=== PATIENT | female | born 1955 | race Caucasian/White ===

== ENCOUNTER 2017-01-17 09:19 | Emergency (ER) | payer OTHER ==
[~2017-01-17] VITALS: Ht 157.5 cm; Wt 76.0 kg
[~2017-01-17 09:19] MED LIST: CALC500T21 PO; IRON27TA PO; SYNT137T PO; TAB-TAB PO; VITA250T5 PO
[2017-01-17 09:29] VITALS: BP 124/86; PULSE 74; RESP 16; TEMP 98.6; O2SAT 98
[2017-01-17] MEDS ORDERED: IRON18TA2 PO (09:41)
[2017-01-17] MEDS ORDERED: MULTCAP13 PO (09:41)
[2017-01-17] MEDS ORDERED: LEVO.2 PO (09:41)
[2017-01-17] MEDS ORDERED: SODIUM CHLOR 0.9% 1000 ML INJ 1,000 ML IV SCH (09:47)
--- NOTE | 2017-01-17 09:53 | PD ---
HPI Chief Complaint: Abdominal Pain Time Seen by Provider: 09:41 Travel History International Travel<30 days: No Contact w/Intl Traveler<30days: No Traveled to known affect area: No History of Present Illness HPI 61-year-old female complains of abdominal pain with nausea vomiting diarrhea. Patient states that the pain started 2 months ago. Patient states the pain has been constant pain diffuse over the abdomen. Patient states the pain got worse on the left low quadrant of the abdomen and lower abdomen for the past 3 days. Patient states that she has intermittent nausea vomiting diarrhea. Patient states that the last bowel movement was this morning. Patient states that she had constant vomiting. Patient denies any fever chills. Patient denies any headache. Patient states that she has intermittent dizziness. Patient denies any chest pain or shortness of breath. Patient denies any dysuria or frequency. Patient denies any vaginal discharge or bleeding. Patient denies any back pain. Patient status post cholecystectomy, appendectomy and bariatric surgery. Patient was seen by Dr. Rosas in the past. On a scale of 1-10 the pain is a 7. PFSH Past Medical History Autoimmune Disease: No Blood Disorders: No Depression: Yes Heart Rhythm Problems: No Cancer: No Cardiovascular Problems: No High Cholesterol: No Congestive Heart Failure: No Diabetes: No Diminished Hearing: No Endocrine: Yes Gastrointestinal Disorders: Yes (GERD, S/P BYPASS) Glaucoma: No Genitourinary: No Hepatitis: No Hiatal Hernia: Yes (REPAIRED) Hypertension: Yes Immune Disorder: No Musculoskeletal: No Neurologic: No Psychiatric: Yes (PANIC ATTACKS) Reproductive: No Respiratory: No Sleep Apnea: Yes (USES CPAP) Thyroid Disease: Yes Influenza Vaccination: Yes ?: Not Menopausal: Yes Past Surgical History Abdominal Surgery: Yes (APPY, GASTRIC BYPASS) AICD: No Appendectomy: Yes Cholecystectomy: Yes Joint Replacement: No Pacemaker: No Other Surgery: Yes Social History Alcohol Use: No (rare) Tobacco Use: Yes Substance Use: No Allergies-Medications (Allergen,Severity, Reaction): Coded Allergies: No Known Allergies (Verified , 01/17/17) Reported Meds & Prescriptions Reported Meds & Active Scripts Active Lomotil (Diphenoxylate-Atropine) 2.5-0.025 Mg Tab 1 Tab PO Q6H PRN Bentyl (Dicyclomine HCl) 20 Mg Tab 20 Mg PO TID Zofran Odt (Ondansetron Odt) 4 Mg Tab 4 Mg SL Q6HR PRN Reported Iron (Ferrous Fumarate) 18 Mg Tab 29 Mg PO DAILY Multi Complete (Multiple Vitamins W/ Minerals) 1 Cap Cap 1 Cap PO DAILY Synthroid (Levothyroxine Sodium) 200 Mcg Tab 225 Mcg PO DAILY Review of Systems General / Constitutional: No: Fever Eyes: No: Visual changes HENT: No: Headaches Cardiovascular: No: Chest Pain or Discomfort Respiratory: No: Shortness of Breath Gastrointestinal: Positive: Nausea, Vomiting, Diarrhea, Abdominal Pain Genitourinary: No: Dysuria Musculoskeletal: No: Pain Skin: No Rash Neurologic: No: Weakness Psychiatric: No: Depression Endocrine: No: Polydipsia Hematologic/Lymphatic: No: Easy Bruising Physical Exam Narrative GENERAL: Well-nourished, well-developed patient. SKIN: Warm and dry. HEAD: Normocephalic. EYES: No scleral icterus. No injection or drainage. NECK: Supple, trachea midline. No JVD or lymphadenopathy. CARDIOVASCULAR: Regular rate and rhythm without murmurs, gallops, or rubs. RESPIRATORY: Breath sounds equal bilaterally. No accessory muscle use. GASTROINTESTINAL: Abdomen soft, nondistended. Patient has mild diffuse tenderness over the abdomen including epigastric area and left low quadrant of the abdomen. No rebound tenderness. No mass. MUSCULOSKELETAL: No cyanosis, or edema. BACK: Nontender without obvious deformity. No CVA tenderness. Neurologic exam normal. Data Data Last Documented VS Vital Signs Date Time Temp Pulse Resp B/P Pulse Ox O2 Delivery O2 Flow Rate FiO2 01/17/17 11:08 68 18 140/75 97 Room Air 01/17/17 09:29 98.6 Orders Complete Blood Count With Diff (01/17/17 09:47) Comprehensive Metabolic Panel (01/17/17 09:47) Lipase (01/17/17 09:47) Prothrombin Time / Inr (Pt) (01/17/17 09:47) Act Partial Throm Time (Ptt) (01/17/17 09:47) Urinalysis - C+S If Indicated (01/17/17 09:47) Ct Abd/Pel W Iv Contrast(Rout) (01/17/17 09:47) Iv Access Insert/Monitor (01/17/17 09:47) Ecg Monitoring (01/17/17 09:47) Oximetry (01/17/17 09:47) Ondansetron Inj (Zofran Inj) (01/17/17 10:00) Pantoprazole Inj (Protonix Inj) (01/17/17 10:00) Sodium Chlor 0.9% 1000 Ml Inj (Ns 1000 M (01/17/17 09:47) Iohexol 350 Inj (Omnipaque 350 Inj) (01/17/17 10:35) Labs Laboratory Tests Test 01/17/17 01/17/17 09:46 11:05 White Blood Count 8.8 TH/MM3 Red Blood Count 4.69 MIL/MM3 Hemoglobin 13.3 GM/DL Hematocrit 40.7 % Mean Corpuscular Volume 87.0 FL Mean Corpuscular Hemoglobin 28.3 PG Mean Corpuscular Hemoglobin 32.6 % Concent Red Cell Distribution Width 13.9 % Platelet Count 256 TH/MM3 Mean Platelet Volume 10.1 FL Neutrophils (%) (Auto) 70.6 % Lymphocytes (%) (Auto) 19.9 % Monocytes (%) (Auto) 8.3 % Eosinophils (%) (Auto) 0.7 % Basophils (%) (Auto) 0.5 % Neutrophils # (Auto) 6.2 TH/MM3 Lymphocytes # (Auto) 1.8 TH/MM3 Monocytes # (Auto) 0.7 TH/MM3 Eosinophils # (Auto) 0.1 TH/MM3 Basophils # (Auto) 0.0 TH/MM3 CBC Comment DIFF FINAL Differential Comment Prothrombin Time 10.0 SEC Prothromb Time International 0.9 RATIO Ratio Activated Partial 26.7 SEC Thromboplast Time Sodium Level 143 MEQ/L Potassium Level 3.5 MEQ/L Chloride Level 107 MEQ/L Carbon Dioxide Level 30.4 MEQ/L Anion Gap 6 MEQ/L Blood Urea Nitrogen 8 MG/DL Creatinine 0.68 MG/DL Estimat Glomerular Filtration 88 ML/MIN Rate Random Glucose 93 MG/DL Calcium Level 8.7 MG/DL Total Bilirubin 0.3 MG/DL Aspartate Amino Transf 24 U/L (AST/SGOT) Alanine Aminotransferase 36 U/L (ALT/SGPT) Alkaline Phosphatase 93 U/L Total Protein 7.2 GM/DL Albumin 3.7 GM/DL Lipase 155 U/L Urine Collection Type CLEAN CATCH Urine Color YELLOW Urine Turbidity CLEAR Urine pH 5.5 Urine Specific Oral 1.025 Urine Protein NEG mg/dL Urine Glucose (UA) NEG mg/dL Urine Ketones NEG mg/dL Urine Occult Blood NEG Urine Nitrite NEG Urine Bilirubin NEG Urine Leukocyte Esterase NEG Urine WBC 0-2 /hpf Urine Squamous Epithelial 0-5 /hpf Cells Microscopic Urinalysis Comment CULT NOT INDICATED Urine Collection Time 11:05 [facility] Medical Decision Making Medical Screen Exam Complete: Yes Emergency Medical Condition: Yes Interpretation(s) Last Impressions Abdomen/Pelvis CT 01/17/17 0947 Signed Impressions: Service Date/Time: Tuesday, January 17, 2017 10:28 - CONCLUSION: 1. No specific abnormality is identified to explain the patient's clinical symptoms. There is relatively diffuse distention of the small bowel and colon without a transition point to suggest obstruction. 2. There is trace free fluid in the pelvis from uncertain etiology. 3. 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 The postsurgical changes demonstrate no abnormality. Terrence Gonzales MD 11:48 AM. CBC within normal limit. CMP within normal limit. UA is negative. Differential Diagnosis Differential diagnosis including gastritis, PUD, pancreatitis, colitis, UTI, pyelonephritis, nephrolithiasis. Narrative Course 61-year-old female with abdominal pain, nausea vomiting diarrhea. Normal saline solution 1 25 cc an hour. Protonix 40 mg IV. Zofran 4 mg IV. Diagnosis Primary Impression: Gastroenteritis Patient Instructions: General Instructions Additional Instructions: Clear fluid for 24 hours and advance as tolerated. Take medication as needed. Follow-up with personal physician. Return if persistent problem or worse. Over -the-counter Imodium for diarrhea. Med/Other Pt SpecificInfo: Prescription(s) given Scripts Hyoscyamine Odt (Levsin-SL)0.125 Mg Subl0.125 Mg SL Q6H #12 TAB.SL Ref 0 Prov:Harinder Conrad MD 01/17/17 Ondansetron Odt (Zofran Odt)4 Mg Tab4 Mg SL Q6HR PRN (Nausea/Vomiting) #10 TAB Prov:Harinder Conrad MD 01/17/17 Disposition: 01 DISCHARGE HOME Condition: Stable Harinder Conrad MD Jan 17, 2017 09:53 Harinder Conrad MD Jan 17, 2017 09:53
[2017-01-17 09:54] VITALS: BP 158/91; PULSE 85; RESP 18; O2SAT 98
[2017-01-17 10:00] LABS: AUTOMATED NEUTROPHIL # 6.2 TH/MM3 (1.8-7.7); BASOPHIL % 0.5 % (0.0-2.0); EOSINOPHIL # 0.1 TH/MM3 (0-0.4); EOSINOPHIL % 0.7 % (0.0-4.0); HEMATOCRIT 40.7 % (35.0-46.0); LYMPH % 19.9 % (9.0-44.0); LYMPHOCYTE # 1.8 TH/MM3 (1.0-4.8); MEAN CORPUSCULAR HEMOGLOBIN 28.3 PG (27.0-34.0); MEAN CORPUSCULAR HGB CONC 32.6 % (32.0-36.0); MONO % 8.3 % (0.0-8.0); NEUT % 70.6 % (16.0-70.0); PLATELET COUNT 256 TH/MM3 (150-450); RED BLOOD COUNT 4.69 MIL/MM3 (4.00-5.30); RED CELL DISTRIBUTION WIDTH 13.9 % (11.6-17.2); WHITE BLOOD COUNT 8.8 TH/MM3 (4.0-11.0)
[2017-01-17] MEDS ORDERED: PANTOPRAZOLE SODIUM 40 MG VIAL IVP ONE (10:00)
[2017-01-17] MEDS ORDERED: ONDANSETRON HCL 4 MG/2 ML VIAL IVP ONE (10:00)
[2017-01-17 10:04] LABS: HEMO FLAGS DIFF FINAL
[2017-01-17 10:13] LABS: CHLORIDE 107 MEQ/L (98-107); POTASSIUM 3.5 MEQ/L (3.5-5.1); SODIUM (NA) 143 MEQ/L (136-145)
[2017-01-17 10:14] LABS: APTT (PATIENT) 26.7 SEC (24.3-30.1); INTERNATIONAL NORMALIZED RATIO 0.9 RATIO
[2017-01-17 10:17] LABS: ANION GAP 6 MEQ/L (5-15); BICARBONATE 30.4 MEQ/L (21.0-32.0); BLOOD UREA NITROGEN 8 MG/DL (7-18)
[2017-01-17 10:19] LABS: ALT (GPT) 36 U/L (10-53)
[2017-01-17 10:20] LABS: AST (GOT) 24 U/L (15-37); GLOMERULAR FILTRATION RATE 88 ML/MIN (>89)
[2017-01-17 10:22] LABS: ALKALINE PHOSPHATASE 93 U/L (45-117)
[2017-01-17 10:23] LABS: TOTAL BILIRUBIN ADULT 0.3 MG/DL (0.2-1.0)
[2017-01-17] MEDS ORDERED: IOHEXOL 350 MG/ML 10 ML VIAL (for RAD DIAG) IV ONE (10:35)
--- NOTE | 2017-01-17 10:51 | RADHPO ---
EXAM DATE/TIME: 01/17/2017 10:28 [facility] COMPARISON: No previous studies available for comparison. INDICATIONS : Left lower quadrant pain with nausea, vomiting and diarrhea. IV CONTRAST: 70 cc Omnipaque 350 (iohexol) IV ORAL CONTRAST: No oral contrast ingested. RADIATION DOSE: 11.10 CTDIvol (mGy) MEDICAL HISTORY : Gastroesophageal reflux disease. SURGICAL HISTORY : Appendectomy. Gastric bypass. Hiatal hernia repair. Orthopedic surgery. ENCOUNTER: Initial ACUITY: 3 days PAIN SCALE: 6/10 LOCATION: Left lower quadrant TECHNIQUE: Volumetric scanning of the abdomen and pelvis was performed. Using automated exposure control and ad justment of the mA and/or kV according to patient size, radiation dose was kept as low as reasonably achievable to obtain optimal diagnostic quality images. FINDINGS: LOWER LUNGS: The visualized lower lungs are clear. LIVER: Homogeneous density without lesion. There is no dilation of the biliary tree. There has been prior cholecystectomy with clips in the gallbladder fossa. SPLEEN: Normal size without lesion. PANCREAS: Within normal limits. KIDNEYS: Normal in size and shape. There is no mass, stone or hydronephrosis. There is a 5 mm low-density les ion in the right mid kidney that is too small to characterize. ADRENAL GLANDS: Within normal limits. VASCULAR: There is no aortic aneurysm. BOWEL/MESENTERY: There has been prior Huber-en-Y gastric bypass surgery. Stable line is visualized at the stomach. Both the proximal and distal anastomosis demonstrate no abnormality. Excluded stomach contains a small am ount of fluid. The duodenum and jejunum are not abnormally dilated. The mid to distal small bowel is distended with air as is the colon. There is trace free fluid in the pelvis. There is no free air. ABDOMINAL WALL: There are postsurgical changes on the abdominal wall. RETROPERITONEUM: There is no lymphadenopathy. BLADDER: No wall thickening or mass. REPRODUCTIVE: Within normal limits. INGUINAL: There is no lymphadenopathy or hernia. MUSCULOSKELETAL: There are mild degenerative changes of the lumbar spine. CONCLUSION: 1. No specific abnormality is identified to explain the patient's clinical symptoms. There is relativ aj diffuse distention of the small bowel and colon without a transition point to suggest obstruction . 2. There is trace free fluid in the pelvis from uncertain etiology. 3. 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 The pos tsurgical changes demonstrate no abnormality. Terrence Gonzales MD on January 17, 2017 at 10:44 Board Certified Radiologist. This report was verified electronically.
[2017-01-17 11:08] VITALS: BP 140/75; PULSE 68; RESP 18; O2SAT 97
[2017-01-17 11:20] LABS: BLOOD, URINE NEG (NEG); GLUCOSE,URINE NEG (NEG); KETONE, URINE NEG (NEG); NITRITE,URINE NEG (NEG); PH, URINE 5.5 (5.0-8.5)
[2017-01-17 11:29] LABS: COMMENT (UR) CULT NOT INDICATED; CULTURE IF INDICATED CULT NOT INDICATED; METHOD OF COLLECTION CLEAN CATCH; SQUAMOUS EPITHELIAL CELL URINE 0-5 /hpf (0-5); URINE COLOR YELLOW (YELLW/STRAW); WBC, URINE 0-2 /hpf (0-5)
[2017-01-17] MEDS ORDERED: LOMO2.5T PO (11:54)
[2017-01-17] MEDS ORDERED: BENT20TA PO (11:54)
[2017-01-17] MEDS ORDERED: ZOFR4TAB3 SL (11:54)
[2017-01-17] MEDS ORDERED: LEVS0.124 SL (11:59)
== END 2017-01-17 12:06 | disposition home or self-care (01) ==
LOC: PHED 09:19
DX: K52.9 Noninfective gastroenteritis and colitis, unspecified (principal); R42 Dizziness and giddiness
CPT/HCPCS: 74177; 80053; 81001; 83690; 85025; 85610; 85730; 96374; 96375; 99284; C9113; J2405; J7030; Q9967